=== PATIENT | female | born 1980 | race Asian ===

== ENCOUNTER 2021-10-07 04:10 | Inpatient (IN) | payer OTHER ==
[~2021-10-07] VITALS: Ht 160 cm; Wt 70.0 kg
[2021-10-07] VITALS (33 sets, daily range): BP systolic 68–204; BP diastolic 36–127
[2021-10-07 06:06] LABS: Basophils # (auto) 0 10 ^3/uL (0-0.2); Eosinophils # (auto) 0 10 ^3/uL (0-0.8); Hemoglobin 15.2 g/dL (12.2-16.2); Monocytes # (auto) 0.8 10 ^3/uL (0-1.3); White Blood Cell 11.9 10^3/uL (4.4-10.8)
[2021-10-07 06:08] LABS: Basophils % (auto) 0.1 % (0.0-2.0); Hematocrit 48.4 % (36.0-46.0); Lymphocytes # (auto) 1.7 10 ^3/uL (0.4-5.4); Lymphocytes % (auto) 14.4 % (10.0-50.0); Mean Corpuscular Hemoglobin 19.7 pg (28.0-32.0); Mean Corpuscular Hgb Conc. 31.3 g/dL (32.0-36.0); Monocytes % (auto) 7.1 % (0.0-12.0); Neutrophils # (auto) 9.3 10 ^3/uL (1.6-8.6); Neutrophils % (auto) 78.4 % (37.0-80.0); Nucleated Red Blood Cells % 0.1 %; Red Blood Cells 7.68 10^6/uL (4.0-5.20); Red Cell Distribution Width 15.6 % (11.8-14.3)
[2021-10-07 06:09] LABS: Albumin 2.8 g/dL (3.4-5.0); BUN/Creatinine Ratio 16.2
[2021-10-07 06:12] LABS: Bilirubin, Total 0.3 mg/dL (0.2-1.0); Total Protein 7.2 g/dL (6.4-8.2)
[2021-10-07 08:12] LABS: Urine Bacteria NONE SEEN /hpf (None Seen); Urine Blood 3+ /uL (Negative); Urine Hyaline Cast MOD /lpf (0 - 2); Urine Mucus FEW (None Seen); Urine Specific Gravity 1.021 (1.001-1.035); Urine WBC 1 /hpf (0 - 5)
[2021-10-07] MEDS ORDERED: VERAPAMIL 2.5MG/ML INJ 2ML VIAL IV ONE (08:12)
[2021-10-07] MEDS ORDERED: HEPARIN SODIUM (PORCINE) 5000 UNITS/ML 1ML VIAL ONE (08:12)
[2021-10-07] MEDS ORDERED: fentaNYL CITRATE 100 MCG/2 ML VL ONE (08:12)
[2021-10-07] MEDS ORDERED: IODIXANOL 320MG/ML 100ML BTL IV ONE (08:13)
[2021-10-07] MEDS ORDERED: SODIUM CHL 0.9% 50 ML ONE (08:13)
[2021-10-07] MEDS ORDERED: ANGIOMAX 250 MG VIAL IV ONE (08:13)
[2021-10-07] MEDS ORDERED: MIDAZOLAM HCL 2MG/2ML 2ml VIAL (1mg/ml) ONE (08:13)
[2021-10-07] MEDS ORDERED: LIDOCAINE 2%HCL (LOCAL ANESTH.) INJ 20ML MDV ONE (08:23)
[2021-10-07] MEDS ORDERED: SOD CHL 0.45% 1,000 ML IV SCH (09:15)
[2021-10-07] MEDS ORDERED: NITROGLYCERIN 0.4 MG SL TAB SL PRN (09:15)
[2021-10-07] MEDS ORDERED: MORPHINE SULFATE INJECTION 2 MG/ML SYRG IV PRN (09:15)
[2021-10-07] MEDS ORDERED: CARVEDILOL 3.125 MG TAB PO SCH (10:00)
[2021-10-07] MEDS ORDERED: ATORVASTATIN 20 MG TAB PO SCH (10:00)
[2021-10-07] MEDS: ASPirin-EC 81 mg tab PO SCH ×2 (10:44→22:22)
[2021-10-07] MEDS: SACUBITRIL-VALSARTAN 24mg/26mg TAB PO SCH ×2 (10:46→22:00)
[2021-10-07] MEDS: PANTOPRAZOLE 40 MG TAB PO SCH (10:46)
[2021-10-07] MEDS ORDERED: FUROSEMIDE 20 MG/2 ML VIAL IV ONE (11:45)
[2021-10-07] MEDS ORDERED: REMDESIVIR PER PHARMACY 0 ML IV SCH (14:45)
[2021-10-07] MEDS ORDERED: DexAMETHasone SOD PHOS 10MG/1ML VIAL INJ IV ONE (14:45)
[2021-10-07] MEDS: ALPRAZolam 0.25 MG TAB PO SCH ×2 (15:30→22:29)
[2021-10-07] MEDS ORDERED: hydrALAZINE HCL 20 MG/ML VL IV PRN (15:45)
[2021-10-07 16:12] LABS: Magnesium 2.9 mg/dL (1.6-2.6)
[2021-10-07] MEDS ORDERED: REMDESIVIR 200 MG in NS 210ml LOADING DOSE ADULT IV ONE (17:00)
[2021-10-07] MEDS ORDERED: CARVEDILOL 12.5 MG TAB PO SCH (22:00)
[2021-10-07] MEDS ORDERED: COLCHICINE 0.6 MG CAP PO SCH (22:00)
[2021-10-07 23:36] LABS: Basophils # (auto) 0.1 10 ^3/uL (0-0.2); Basophils % (auto) 0.7 % (0.0-2.0); Eosinophils # (auto) 0 10 ^3/uL (0-0.8); Hematocrit 52.6 % (36.0-46.0); Hemoglobin 16.3 g/dL (12.2-16.2); Lymphocytes # (auto) 1.3 10 ^3/uL (0.4-5.4); Lymphocytes % (auto) 9.8 % (10.0-50.0); Mean Corpuscular Hemoglobin 19.3 pg (28.0-32.0); Mean Corpuscular Hgb Conc. 31.1 g/dL (32.0-36.0); Mean Corpuscular Volume 62.2 fL (80.0-100.0); Monocytes # (auto) 0.8 10 ^3/uL (0-1.3); Monocytes % (auto) 6.3 % (0.0-12.0); Neutrophils # (auto) 10.8 10 ^3/uL (1.6-8.6); Neutrophils % (auto) 83.2 % (37.0-80.0); Nucleated Red Blood Cells % 0.2 %; Red Blood Cells 8.45 10^6/uL (4.0-5.20); Red Cell Distribution Width 15.5 % (11.8-14.3)
[2021-10-07] MEDS ORDERED: PHENYLEPHRINE IV 250 ML IV ONE (23:39)
[2021-10-07 23:54] LABS: Albumin 2.7 g/dL (3.4-5.0); BUN/Creatinine Ratio 24.6; Calcium 8.3 mg/dL (8.5-10.1); Magnesium 2.6 mg/dL (1.6-2.6); Potassium 3.9 mmol/L (3.5-5.1)
[2021-10-07 23:58] LABS: Bilirubin, Total 0.3 mg/dL (0.2-1.0); Total Protein 6.9 g/dL (6.4-8.2)
[2021-10-08] VITALS (67 sets, daily range): BP systolic 4–178; BP diastolic -5–130
[2021-10-08] MEDS ORDERED: FUROSEMIDE 20 MG/2 ML VIAL IV ONE (01:00)
[2021-10-08] MEDS ORDERED: PHENYLEPHRINE IV 250 ML IV SCH (01:00)
[2021-10-08] MEDS ORDERED: HEPARIN SODIUM (PORCINE) 5000 UNITS/ML 1ML VIAL SC ONE (01:00)
[2021-10-08] MEDS ORDERED: FUROSEMIDE 20 MG/2 ML VIAL ONE (01:06)
[2021-10-08] MEDS ORDERED: PHENYLEPHRINE HCL 10 MG/ML VL ONE ×2 (06:06→20:18)
[2021-10-08] MEDS: PHENYLEPHRINE INJ 40 MG in SODIUM CHL 0.9% 246 ML IV SCH ×2 (07:00→22:00)
[2021-10-08] MEDS ORDERED: LORazepam 2MG/ML-1ML VIAL ONE (08:34)
[2021-10-08 09:06] LABS: Basophils # (auto) 0.1 10 ^3/uL (0-0.2); Basophils % (auto) 0.3 % (0.0-2.0); Eosinophils # (auto) 0 10 ^3/uL (0-0.8); Hematocrit 49.8 % (36.0-46.0); Hemoglobin 15.1 g/dL (12.2-16.2); Lymphocytes # (auto) 1.9 10 ^3/uL (0.4-5.4); Lymphocytes % (auto) 8.5 % (10.0-50.0); Mean Corpuscular Hemoglobin 19.1 pg (28.0-32.0); Mean Corpuscular Hgb Conc. 30.4 g/dL (32.0-36.0); Mean Corpuscular Volume 62.9 fL (80.0-100.0); Monocytes # (auto) 1.2 10 ^3/uL (0-1.3); Monocytes % (auto) 5.6 % (0.0-12.0); Neutrophils # (auto) 18.7 10 ^3/uL (1.6-8.6); Neutrophils % (auto) 85.6 % (37.0-80.0); Nucleated Red Blood Cells % 0.1 %; Red Blood Cells 7.92 10^6/uL (4.0-5.20); Red Cell Distribution Width 15.7 % (11.8-14.3); White Blood Cell 21.9 10^3/uL (4.4-10.8)
[2021-10-08 09:13] LABS: Albumin 2.3 g/dL (3.4-5.0); Calcium 6.8 mg/dL (8.5-10.1); Chloride 96 mmol/L (98-107); Sodium 131 mmol/L (136-145)
[2021-10-08 09:22] LABS: Alanine Aminotransferase 241 U/L (13-56); Alkaline Phosphatase 167 U/L (45-117); Anion Gap 15 (5-15); BUN/Creatinine Ratio 32.2; Bilirubin, Total 0.4 mg/dL (0.2-1.0); Blood Urea Nitrogen 46 mg/dL (7-18); Carbon Dioxide 20 mmol/L (21-32); GFR African American 52 mL/min; GFR Non-African American 43 mL/min; Glucose 69 mg/dL (74-106); Total Protein 6.6 g/dL (6.4-8.2)
[2021-10-08] MEDS: ZINC SULFATE 220mg CAP or TAB PO SCH (10:00)
[2021-10-08] MEDS: CHOLECALCIFEROL (VITD3) 2,000 UNIT CAP/TAB PO SCH (10:00)
[2021-10-08] MEDS ORDERED: HEPARIN SODIUM (PORCINE) 5000 UNITS/ML 1ML VIAL SC SCH (10:00)
[2021-10-08] MEDS: ASCORBIC ACID 500 MG TAB PO SCH (10:00)
[2021-10-08] MEDS: ALPRAZolam 0.25 MG TAB PO SCH ×2 (10:00→22:00)
[2021-10-08] MEDS: PANTOPRAZOLE 40 MG TAB PO SCH (10:00)
[2021-10-08] MEDS ORDERED: CALCIUM CHL 100MG/ML 1,000 MG in D5W 5% 100 ML IV ONE (10:00)
[2021-10-08] MEDS: DexAMETHasone SOD PHOS 10MG/1ML VIAL INJ IV SCH (10:00)
[2021-10-08] MEDS ORDERED: FUROSEMIDE 20 MG/2 ML VIAL IV SCH ×2 (10:00→10:30)
[2021-10-08] MEDS ORDERED: SODIUM BICARBONATE 8.4 % INJ 50ML VIAL IV ONE ×3 (10:15→16:20)
[2021-10-08] MEDS ORDERED: ALBUTEROL SULF 2.5 MG/0.5ML(0.5%) NEB SOLN NEB ONE (10:15)
[2021-10-08] MEDS ORDERED: SODIUM ZIRCONIUM CYCL 10 GM PAK PO ONE (10:15)
[2021-10-08] MEDS ORDERED: SODIUM CHLORIDE 0.9% 500 ML IV ONE (10:15)
[2021-10-08] MEDS ORDERED: ETOMIDATE (2MG/ML) 20ML VIAL IV ONE (10:18)
[2021-10-08] MEDS ORDERED: ROCURONIUM 10MG/ML 10ML VIAL IV ONE (10:18)
[2021-10-08] MEDS ORDERED: MIDAZOLAM DRIP 50 mg/50mL 50 ML IV ONE (10:25)
[2021-10-08] MEDS ORDERED: fentaNYL Drip 2500mCg/250mlNS 250 ML IV ONE (10:25)
[2021-10-08 10:30] LABS: Aspartate Aminotransferase > 1000 U/L (15-37)
[2021-10-08] MEDS ORDERED: SODIUM BICARBONATE 50ML VIAL 150 ML in D5W 5% 1,000 ML IV ONE (10:45)
[2021-10-08] MEDS ORDERED: PIPERACILLIN-TAZOB 2.25GM 50 ML IV ONE (11:00)
[2021-10-08] MEDS ORDERED: IODIXANOL 320MG/ML 100ML BTL IV ONE (11:03)
[2021-10-08] MEDS ORDERED: LIDOCAINE 2%HCL (LOCAL ANESTH.) INJ 20ML MDV ONE (11:03)
[2021-10-08] MEDS ORDERED: DOBUTamine 1000MCG/ML 250 ML IV ONE ×2 (11:05→17:08)
[2021-10-08] MEDS: ALBUTEROL SULF 2.5 MG/0.5ML(0.5%) NEB SOLN ONE ×2 (11:43→11:49)
[2021-10-08 12:09] LABS: INR 1.06 (0.9-1.15); Partial Thromboplastin Time 32.5 sec (23.6-33.0)
[2021-10-08] MEDS ORDERED: HEPARIN DRIP/D5W 100UNITS/ML 250 ML IV SCH ×2 (12:15→13:30)
[2021-10-08] MEDS ORDERED: NOREPINEPHRINE 8 MG/250ML KIT 0 ML IV ONE (12:51)
[2021-10-08] MEDS ORDERED: HEPARIN SODIUM (PORCINE) 5000 UNITS/ML 1ML VIAL ONE (13:28)
[2021-10-08] MEDS ORDERED: ATROPINE SULF 1 MG/10ml SYR ONE (13:55)
[2021-10-08] MEDS ORDERED: EPINEPHrine HCL 1 MG/10 ML SYRG ONE (13:55)
[2021-10-08] MEDS ORDERED: DOPamine 1600MCG/ML D5W 0 ML IV ONE (13:56)
[2021-10-08] MEDS ORDERED: NOREPINEPHRINE 8 MG/250ML KIT 250 ML IV ONE ×3 (13:57→20:17)
[2021-10-08] MEDS ORDERED: fentaNYL Drip 2500mCg/250mlNS 250 ML IV SCH (14:00)
[2021-10-08] MEDS ORDERED: EPINEPHrine HCL 250 ML IV ONE (14:11)
[2021-10-08] MEDS ORDERED: PHENYLEPHRINE IV 250 ML IV ONE ×2 (15:14→20:17)
[2021-10-08 15:58] LABS: BUN/Creatinine Ratio 35.3; Potassium 3.7 mmol/L (3.5-5.1)
[2021-10-08] MEDS: REMDESIVIR 100mg 100 MG in SODIUM CHL 0.9% 230 ML IV SCH (16:30)
[2021-10-08] MEDS: HEPARIN DRIP/D5W 100UNITS/ML 250 ML IV SCH ×2 (16:30→23:00)
[2021-10-08] MEDS: MIDAZOLAM DRIP 50 mg/50mL 50 ML IV SCH ×2 (16:50→19:32)
[2021-10-08] MEDS: DOBUTamine 1000MCG/ML 250 ML IV SCH ×3 (17:35→21:30)
[2021-10-08] MEDS: PIPERACILLIN-TAZOB 2.25GM 50 ML IV SCH (19:02)
[2021-10-08] MEDS ORDERED: ALBUMIN 5% 500 ML IV ONE (19:53)
[2021-10-08] MEDS: NOREPINEPHRINE 8 MG/250ML KIT 250 ML IV SCH (20:00)
[2021-10-08 23:02] LABS: BUN/Creatinine Ratio 31.7; Magnesium 2.3 mg/dL (1.6-2.6); Potassium 3.6 mmol/L (3.5-5.1)
[2021-10-08 23:39] LABS: Calcium 5.2 mg/dL (8.5-10.1)
[2021-10-09] VITALS (77 sets, daily range): BP systolic 22–114; BP diastolic 13–77
[2021-10-09] MEDS ORDERED: FUROSEMIDE 20 MG/2 ML VIAL IV PRN
[2021-10-09] MEDS: NOREPINEPHRINE 8 MG/250ML KIT 250 ML IV SCH (00:45)
[2021-10-09 01:09] LABS: INR 1.19 (0.9-1.15)
[2021-10-09 01:11] LABS: Partial Thromboplastin Time > 139.0 sec (23.6-33.0)
[2021-10-09] MEDS: PIPERACILLIN-TAZOB 2.25GM 50 ML IV SCH ×3 (01:15→11:56)
[2021-10-09] MEDS: PHENYLEPHRINE INJ 40 MG in SODIUM CHL 0.9% 246 ML IV SCH ×2 (03:28→15:00)
[2021-10-09] MEDS: DOBUTamine 1000MCG/ML 250 ML IV SCH ×3 (03:35→12:28)
[2021-10-09 04:37] LABS: Basophils # (auto) 0 10 ^3/uL (0-0.2); Eosinophils # (auto) 0 10 ^3/uL (0-0.8); Lymphocytes # (auto) 0.8 10 ^3/uL (0.4-5.4); Monocytes # (auto) 0.8 10 ^3/uL (0-1.3); Neutrophils # (auto) 6.8 10 ^3/uL (1.6-8.6)
[2021-10-09 04:40] LABS: Basophils % (auto) 0.1 % (0.0-2.0); Hemoglobin 10.8 g/dL (12.2-16.2); Lymphocytes % (auto) 9.5 % (10.0-50.0); Mean Corpuscular Hemoglobin 19.3 pg (28.0-32.0); Mean Corpuscular Volume 62.3 fL (80.0-100.0); Monocytes % (auto) 9.6 % (0.0-12.0); Neutrophils % (auto) 80.8 % (37.0-80.0); Red Blood Cells 5.61 10^6/uL (4.0-5.20); White Blood Cell 8.4 10^3/uL (4.4-10.8)
[2021-10-09 05:21] LABS: Potassium 3.8 mmol/L (3.5-5.1)
[2021-10-09 05:26] LABS: Albumin 2.1 g/dL (3.4-5.0); BUN/Creatinine Ratio 28.8
[2021-10-09 05:31] LABS: Bilirubin, Total 0.4 mg/dL (0.2-1.0); Total Protein 4.6 g/dL (6.4-8.2)
[2021-10-09 05:50] LABS: Calcium 5.2 mg/dL (8.5-10.1)
[2021-10-09] MEDS ORDERED: CALCIUM GLUC 1,000mg/50ml-NS 50 ML IV ONE (06:15)
[2021-10-09] MEDS ORDERED: CALCIUM GLUC 1,000mg/50ml-NS 100 ML IV ONE (06:20)
[2021-10-09 07:12] LABS: Partial Thromboplastin Time > 139.0 sec (23.6-33.0)
[2021-10-09] MEDS ORDERED: HEPARIN DRIP/D5W 100UNITS/ML 250 ML IV SCH ×2 (09:30→16:30)
[2021-10-09] MEDS: DexAMETHasone SOD PHOS 10MG/1ML VIAL INJ IV SCH (09:58)
[2021-10-09] MEDS: ASCORBIC ACID 500 MG TAB PO SCH (09:58)
[2021-10-09] MEDS: CHOLECALCIFEROL (VITD3) 2,000 UNIT CAP/TAB PO SCH (09:58)
[2021-10-09] MEDS: ALPRAZolam 0.25 MG TAB PO SCH (09:59)
[2021-10-09] MEDS: PANTOPRAZOLE 40 MG TAB PO SCH (09:59)
[2021-10-09] MEDS: ZINC SULFATE 220mg CAP or TAB PO SCH (09:59)
[2021-10-09] MEDS ORDERED: ASPirin-EC 81 mg tab PO SCH (10:00)
[2021-10-09] MEDS ORDERED: SOD CHL 0.45% 1,000 ML IV SCH (10:15)
[2021-10-09] MEDS ORDERED: DEXTROSE (50%) 50ML SYRG IV PRN (11:15)
[2021-10-09] MEDS ORDERED: InsuLIN REG 1unit/0.01ml Soln (100units/ml) SC SCH (12:00)
[2021-10-09] MEDS ORDERED: ACCU-CHEK COMFORT CURVE STRIP VI SCH (12:00)
[2021-10-09] MEDS ORDERED: PHENYLEPHRINE IV 250 ML IV ONE (14:07)
[2021-10-09] MEDS: REMDESIVIR 100mg 100 MG in SODIUM CHL 0.9% 230 ML IV SCH (15:11)
[2021-10-10] MEDS ORDERED: PANTOPRAZOLE 40 MG/10 ML VIAL INJ IV SCH (10:00)
[2021-10-17] MEDS ORDERED: LORazepam 2MG/ML-1ML VIAL IV ONE (18:00)
== END 2021-10-09 17:50 | disposition short-term general hospital (02) | DRG 871 ==
LOC: ER 04:10 → EDBD 04:10 → TELE 09:11 → ICU WEST 14:25
PROVIDERS: ADMIT Internal Medicine; ATTEND Internal Medicine
PROC: 4A023N7 Measurement of Cardiac Sampling and Pressure, Left Heart, Percutaneous Approach (ICD-10-PCS; 2021-10-07)
PROC: B211YZZ Fluoroscopy of Multiple Coronary Arteries using Other Contrast (ICD-10-PCS; 2021-10-07)
PROC: B215YZZ Fluoroscopy of Left Heart using Other Contrast (ICD-10-PCS; 2021-10-07)
PROC: XW033E5 Introduction of Remdesivir Anti-infective into Peripheral Vein, Percutaneous Approach, New Technology Group 5 (ICD-10-PCS; 2021-10-07)
PROC: 5A1945Z Respiratory Ventilation, 24-96 Consecutive Hours (ICD-10-PCS; principal; 2021-10-08)
PROC: 0BH17EZ Insertion of Endotracheal Airway into Trachea, Via Natural or Artificial Opening (ICD-10-PCS; 2021-10-08)
PROC: 4A023N6 Measurement of Cardiac Sampling and Pressure, Right Heart, Percutaneous Approach (ICD-10-PCS; 2021-10-08)
PROC: B41GYZZ Fluoroscopy of Left Lower Extremity Arteries using Other Contrast (ICD-10-PCS; 2021-10-08)
PROC: B41FYZZ Fluoroscopy of Right Lower Extremity Arteries using Other Contrast (ICD-10-PCS; 2021-10-08)
PROC: B44HZZZ Ultrasonography of Bilateral Lower Extremity Arteries (ICD-10-PCS; 2021-10-08)
PROC: 02H633Z Insertion of Infusion Device into Right Atrium, Percutaneous Approach (ICD-10-PCS; 2021-10-08)
PROC: B518YZA Fluoroscopy of Superior Vena Cava using Other Contrast, Guidance (ICD-10-PCS; 2021-10-08)
PROC: B548ZZA Ultrasonography of Superior Vena Cava, Guidance (ICD-10-PCS; 2021-10-08)
PROC: 06HN33Z Insertion of Infusion Device into Left Femoral Vein, Percutaneous Approach (ICD-10-PCS; 2021-10-08)
PROC: B51CYZA Fluoroscopy of Left Lower Extremity Veins using Other Contrast, Guidance (ICD-10-PCS; 2021-10-08)
PROC: B54CZZA Ultrasonography of Left Lower Extremity Veins, Guidance (ICD-10-PCS; 2021-10-08)
DX: A41.89 Other specified sepsis (principal); I21.3 ST elevation (STEMI) myocardial infarction of unspecified site; I40.0 Infective myocarditis; I50.21 Acute systolic (congestive) heart failure; J12.82 Pneumonia due to coronavirus disease 2019; J96.01 Acute respiratory failure with hypoxia; N17.0 Acute kidney failure with tubular necrosis; R57.0 Cardiogenic shock; U07.1 COVID-19; I42.0 Dilated cardiomyopathy; D89.839 Cytokine release syndrome, grade unspecified; E78.5 Hyperlipidemia, unspecified; E83.51 Hypocalcemia; E87.5 Hyperkalemia; E11.9 Type 2 diabetes mellitus without complications; R79.89 Other specified abnormal findings of blood chemistry; Z53.8 Procedure and treatment not carried out for other reasons; F41.9 Anxiety disorder, unspecified; G40.909 Epilepsy, unspecified, not intractable, without status epilepticus; I11.0 Hypertensive heart disease with heart failure; Z87.891 Personal history of nicotine dependence
CPT/HCPCS: 36415; 36600; 70450; 71045; 80048; 80053; 80061; 81001; 81025; 82728; 82805; 82962; 83036; 83615; 83735; 83880; 84132; 84443; 84484; 85025; 85379; 85610; 85730; 87070; 87081; 87205; 93005; 93306; 93451; 93458; 93970; 94003; 95819; 96365; 96375; 99152; 99153; C1751; G0378; J0171; J1100; J2250; J2543; J7060; Q9967